=== PATIENT | male | born 1940 | race Caucasian/White ===

== ENCOUNTER → 2019-02-25 | Outpatient (CLI) | payer OTHER | LOC: RAD 08:41 → SPEECH 08:41 | DX: M50.81 Other cervical disc disorders, high cervical region (principal); K21.9 Gastro-esophageal reflux disease without esophagitis; R05 Cough; M25.78 Osteophyte, vertebrae; C61 Malignant neoplasm of prostate; R43.9 Unspecified disturbances of smell and taste; J30.89 Other allergic rhinitis; R49.0 Dysphonia; R09.89 Other specified symptoms and signs involving the circulatory and respiratory systems; Z98.890 Other specified postprocedural states ==

== ENCOUNTER → 2019-02-27 | Outpatient (CLI) | payer OTHER | LOC: RAD 08:38 | DX: K21.9 Gastro-esophageal reflux disease without esophagitis (principal); R13.19 Other dysphagia; J30.9 Allergic rhinitis, unspecified; R43.9 Unspecified disturbances of smell and taste; C61 Malignant neoplasm of prostate; M25.78 Osteophyte, vertebrae; Z98.890 Other specified postprocedural states ==

== ENCOUNTER → 2019-03-13 | Outpatient (CLI) | payer OTHER ==
[2019-03-13 08:47] LABS: CREATININE 0.9 mg/dL (0.7-1.3)
== END ==
LOC: CAT 07:23
PROVIDERS: Otolaryngology Plastic Surgery within the Head & Neck
DX: M47.812 Spondylosis without myelopathy or radiculopathy, cervical region (principal); M47.814 Spondylosis without myelopathy or radiculopathy, thoracic region